=== PATIENT | female | born 1985 | race Asian ===

== ENCOUNTER → 2018-03-18 | Outpatient (CLI) | payer BC | END | disposition home or self-care (01) | LOC: RAD 13:25 | PROVIDERS: ATTEND Emergency Medicine | DX: R10.2 Pelvic and perineal pain (principal) | CPT/HCPCS: 76830 ==

== ENCOUNTER 2019-01-13 16:08 | Outpatient (CLI) | payer BC ==
[~2019-01-13] VITALS: Ht 152.4 cm; Wt 72.7 kg
[2019-01-13 16:18] VITALS: BP 120/73
== END 2019-01-13 17:16 | disposition home or self-care (01) ==
LOC: LDOP 16:08
PROVIDERS: ATTEND Obstetrics & Gynecology
DX: O26.893 Other specified pregnancy related conditions, third trimester (principal); R10.9 Unspecified abdominal pain; O46.93 Antepartum hemorrhage, unspecified, third trimester; Z3A.39 39 weeks gestation of pregnancy
CPT/HCPCS: 59025; 99201; G0463

== ENCOUNTER 2019-01-14 05:21 | Inpatient (IN) | payer BC ==
[~2019-01-14] VITALS: Ht 152.4 cm; Wt 72.7 kg
[2019-01-14] MEDS ORDERED: LACTATED RINGERS 1,000 ML IVBOLUS ONE (07:00)
[2019-01-14 07:23] LABS: MICROSCOPIC AUTO
[2019-01-14] MEDS ORDERED: OXYTOCIN 30U/ 0.9% NaCL 500ML 500 ML IV ONE (08:22)
[2019-01-14] MEDS ORDERED: FENTANYL/BUPIV./NS/PF 250 ML EPIDCONT SCH (08:29)
[2019-01-14] MEDS ORDERED: TERBUTALINE 1 MG/ML, 1ML IVPush PRN (08:30)
[2019-01-14] MEDS ORDERED: FENTANYL PF 100 MCG/2ML IVPush PRN (08:30)
[2019-01-14] MEDS ORDERED: ONDANSETRON 2MG/ML, 2ML IVPush PRN (08:30)
[2019-01-14] MEDS ORDERED: FENTANYL PF 100 MCG/2ML IV PRN (08:30)
[2019-01-14] MEDS ORDERED: MISOPROSTOL 200 MCG TABLET ONE (08:34)
[2019-01-14] MEDS ORDERED: OXYTOCIN 30U/ 0.9% NaCL 500ML 500 ML ONE ×3 (08:34→18:43)
[2019-01-14] MEDS ORDERED: LIDOCAINE 1%, 20ML ONE (08:34)
[2019-01-14] MEDS ORDERED: NEWBORN KIT ONE (08:34)
[2019-01-14 08:46] LABS: BASOPHILS # (AUTO) 0.11 x10^3/uL (0-0.1); BASOPHILS % (AUTO) 1 % (0-1); EOSINOPHILS # (AUTO) 0.02 x10^3/uL (0-0.4); EOSINOPHILS % (AUTO) 0 % (1-7); LYMPHOCYTES # (AUTO) 1.53 x10^3/uL (1-3.4); LYMPHOCYTES % (AUTO) 16 % (22-44); MD NO; MEAN CORPUSCULAR HEMOGLOBIN 27.3 pg (27.0-34.8); MEAN CORPUSCULAR HGB CONC 32.5 g/dL (32.4-35.8); MEAN PLATELET VOLUME 8.1 fL (7.4-10.4); MONOCYTES # (AUTO) 0.77 x10^3/uL (0.2-0.8); MONOCYTES % (AUTO) 8 % (2-9); NEUTROPHILS # (AUTO) 7.03 x10^3/uL (1.8-6.8); NEUTROPHILS % (AUTO) 74 % (42-75); PLATELET COUNT 201 x10^3/uL (130-400); RED BLOOD COUNT 4.57 x10^6/uL (3.82-5.3); RED CELL DISTRIBUTION WIDTH 15.4 % (9.6-15.2)
[2019-01-14] MEDS ORDERED: FENTANYL PF 100 MCG/2ML ONE ×2 (09:01→09:22)
[2019-01-14] MEDS ORDERED: BUPIVACAINE 0.25% ONE (09:23)
[2019-01-14] MEDS ORDERED: LIDOCAINE/PF 1.5%-EPI 1:200K, 30ML ONE (09:27)
[2019-01-14] MEDS ORDERED: FENTANYL PF 500 MCG, BUPIVACAINE/PF 0.5%, 30ML 62.5 ML in SODIUM CHLORIDE 0.9% 177.5 ML EPIDCONT SCH (09:30)
[2019-01-14] MEDS ORDERED: OXYTOCIN 30U/ 0.9% NaCL 500ML 500 ML IV PRN (11:05)
[2019-01-14] MEDS: LACTATED RINGERS 1,000 ML IV SCH ×2 (11:36→15:36)
[2019-01-14] MEDS ORDERED: IBUPROFEN 600 MG TABLET ONE (19:20)
[2019-01-14] MEDS ORDERED: OXYcodone/APAP 5/325MG TABLET PO PRN ×2 (20:30)
[2019-01-14] MEDS ORDERED: ONDANSETRON 2MG/ML, 2ML IV PRN (20:30)
[2019-01-14] MEDS ORDERED: MISOPROSTOL 200 MCG TABLET PR PRN (20:30)
[2019-01-14] MEDS ORDERED: IBUPROFEN 600 MG TABLET PO PRN (20:30)
[2019-01-14 20:40] VITALS: BP 136/79
[2019-01-14] MEDS: OXYTOCIN 30U/ 0.9% NaCL 500ML 500 ML IV SCH (20:45)
[2019-01-14] MEDS: PLEASE ENTER DRUG ALLERGIES MC SCH (21:00)
[2019-01-15 01:05] VITALS: BP 102/63
[2019-01-15 02:33] LABS: MEAN CORPUSCULAR HEMOGLOBIN 28.1 pg (27.0-34.8); MEAN CORPUSCULAR HGB CONC 33.1 g/dL (32.4-35.8); MEAN CORPUSCULAR VOLUME 85.1 fL (80-100); MEAN PLATELET VOLUME 7.5 fL (7.4-10.4); PLATELET COUNT 177 x10^3/uL (130-400); RED BLOOD COUNT 3.87 x10^6/uL (3.82-5.3); RED CELL DISTRIBUTION WIDTH 15.2 % (9.6-15.2)
[2019-01-15 03:09] LABS: BASOPHILS # (AUTO) 0.02 x10^3/uL (0-0.1); BASOPHILS % (AUTO) 0 % (0-1); EOSINOPHILS # (AUTO) 0.01 x10^3/uL (0-0.4); EOSINOPHILS % (AUTO) 0 % (1-7); LYMPHOCYTES % (AUTO) 9 % (22-44); MD SCAN; MONOCYTES # (AUTO) 1.09 x10^3/uL (0.2-0.8); MONOCYTES % (AUTO) 6 % (2-9); NEUTROPHILS # (AUTO) 16.78 x10^3/uL (1.8-6.8); NEUTROPHILS % (AUTO) 85 % (42-75)
[2019-01-15 04:50] VITALS: BP 92/61
[2019-01-15] MEDS: PLEASE ENTER DRUG ALLERGIES MC SCH ×2 (05:00→13:00)
[2019-01-15] MEDS: OXYTOCIN 30U/ 0.9% NaCL 500ML 500 ML IV SCH ×2 (06:19→16:19)
[2019-01-15 07:40] VITALS: BP 102/71
[2019-01-15] MEDS ORDERED: PRENATAL VIT/IRON/FA 1 EACH TABLET PO SCH (09:00)
[2019-01-15 12:19] VITALS: BP 112/67
[2019-01-15 15:54] VITALS: BP 120/78
[2019-01-15 19:30] VITALS: BP 124/85
[2019-01-15] MEDS: DOCUSATE 100 MG CAPSULE PO PRN (22:51)
[2019-01-16] MEDS: OXYTOCIN 30U/ 0.9% NaCL 500ML 500 ML IV SCH (02:19)
[2019-01-16 07:45] VITALS: BP 119/77
[2019-01-16] MEDS: DOCUSATE 100 MG CAPSULE PO PRN (07:46)
== END 2019-01-16 11:05 | disposition home or self-care (01) | DRG 807 ==
LOC: LDOP 05:21 → LDIP 08:26 → 2NW 20:08
PROVIDERS: ADMIT Obstetrics & Gynecology; ATTEND Obstetrics & Gynecology
PROC: 10907ZC Drainage of Amniotic Fluid, Therapeutic from Products of Conception, Via Natural or Artificial Opening (ICD-10-PCS; principal; 2019-01-14)
PROC: 10E0XZZ Delivery of Products of Conception, External Approach (ICD-10-PCS; 2019-01-14)
PROC: 0KQM0ZZ Repair Perineum Muscle, Open Approach (ICD-10-PCS; 2019-01-14)
PROC: 3E0R3BZ Introduction of Anesthetic Agent into Spinal Canal, Percutaneous Approach (ICD-10-PCS; 2019-01-14)
PROC: 00HU33Z Insertion of Infusion Device into Spinal Canal, Percutaneous Approach (ICD-10-PCS; 2019-01-14)
DX: O24.420 Gestational diabetes mellitus in childbirth, diet controlled (principal); Z37.0 Single live birth; Z3A.38 38 weeks gestation of pregnancy; O70.1 Second degree perineal laceration during delivery; Z91.013 Allergy to seafood
CPT/HCPCS: 36415; J3490; S0020; 81001; 82962; 85025; 86850; 86900; G0378; J3010; J2590; J7050; J7120